=== PATIENT | male | born 1970 | race Caucasian/White ===

== ENCOUNTER 2017-04-28 00:59 | Emergency (ER) | payer OTHER ==
[2017-04-28] MEDS: GLUCAGON,HUMAN RECOMBINANT 1 MG/ML VIAL. IV ×2 (01:30)
== END 2017-04-28 03:00 | disposition home or self-care (01) ==
LOC: ER 00:59
DX: T18.128A Food in esophagus causing other injury, initial encounter (principal); X58.XXXA Exposure to other specified factors, initial encounter; Y93.89 Activity, other specified; Y92.89 Other specified places as the place of occurrence of the external cause; Y99.8 Other external cause status
CPT/HCPCS: 71046; 99284